=== PATIENT | female | born 1995 | race Caucasian/White ===

== ENCOUNTER 2016-09-20 01:00 | Emergency (ER) | payer OTHER ==
[~2016-09-20] VITALS: Ht 162.6 cm; Wt 63.6 kg
[~2016-09-20 01:00] MED LIST: BIRTH CONTROL; IMITREX; KEFLEX500 MG PO; MACROBID100 MG PO; MOTRIN800 MG PO; NORCO 5/3251 TABLET PO; PERCOCET 5/31 TABLET PO; PHENERGAN25 MG PR; PRENATAL TABLE1 EAC3 PO; PYRIDIUM200 MG PO; ZITHROMAX Z-PA250 MG PO; ZOFRAN ODT4 MG PO; ZOFRAN ODT8 MG PO; [UNRECOGNIZED DRUG - OTHER] PO; [UNRECOGNIZED DRUG - REMARK]
[2016-09-20 01:32] LABS: HEMATOCRIT 37.2 % (36.0-46.0); MCHC 33.9 G/DL (30.0-36.0); MCV 85.5 FL (83-99); MEAN PLAT.VOLUME 10.2 uM^3 (9.5-12.4); PLATELET COUNT 236 K/uL (156-360); RBC DIS.WIDTH-SD 37.7 % (39-53); RED BLOOD COUNT 4.35 M/uL (3.80-5.20); WHITE BLOOD COUNT 6.4 K/uL (4.1-10.2)
[2016-09-20 01:43] LABS: CHLORIDE 108 mEq/L (99-109); POTASSIUM 3.5 mEq/L (3.7-5.4); SODIUM 139 mEq/L (136-147)
[2016-09-20 01:46] LABS: GLUCOSE 129 mg/dL (70-99)
[2016-09-20 01:47] LABS: ANION GAP 9 MEQ/L (2-14); TOTAL BILIRUBIN 0.3 mg/dL (0.0-1.0)
[2016-09-20 01:49] LABS: ALKALINE PHOSPHATASE 59 IU/L (3-129); GFR ESTIMATE (CALCULATED) > 59 mL/min/
[2016-09-20 01:50] LABS: UREA NITROGEN (BUN) 9 mg/dL (9-23)
[2016-09-20 01:58] LABS: QUANTITATIVE HCG 7000.3 MIU/ML
[2016-09-20 05:33] VITALS: BP 135/79
== END 2016-09-20 05:56 | disposition home or self-care (01) ==
LOC: EME 01:00
DX: O03.4 Incomplete spontaneous abortion without complication (principal); Z91.040 Latex allergy status
CPT/HCPCS: 76801; 80053; 81003; 83030; 84702; 85027; 86850; 86900; 86901; 99281; 99284; J2790

== ENCOUNTER 2017-09-29 20:32 | Emergency (ER) | payer OTHER ==
[~2017-09-29] VITALS: Ht 162.6 cm; Wt 69.3 kg
[2017-09-29 21:00] LABS: HEMOGLOBIN 12.7 G/DL (11.9-15.5); MCH 28.4 PG (29.0-34.0); MCHC 34.3 G/DL (30.0-36.0); MCV 82.8 FL (83-99); PLATELET COUNT 207 K/uL (156-360); RBC DIS.WIDTH-CV 13.1 % (11.8-14.6); RED BLOOD COUNT 4.47 M/uL (3.80-5.20); WHITE BLOOD COUNT 5.7 K/uL (4.1-10.2)
[2017-09-29 21:08] LABS: ALBUMIN 4.6 g/dL (3.2-4.8)
[2017-09-29 21:09] LABS: CHLORIDE 106 mEq/L (99-109); POTASSIUM 3.4 mEq/L (3.7-5.4); SODIUM 140 mEq/L (136-147)
[2017-09-29 21:11] LABS: GLUCOSE 91 mg/dL (70-99)
[2017-09-29 21:13] LABS: TOTAL BILIRUBIN 0.5 mg/dL (0.0-1.0)
[2017-09-29 21:14] LABS: ALKALINE PHOSPHATASE 61 IU/L (3-129)
[2017-09-29 21:15] LABS: CREATININE 0.8 mg/dL (0.6-1.3); GFR ESTIMATE (CALCULATED) > 59 mL/min/
[2017-09-29 21:16] LABS: AST (GOT) 15 IU/L (2-34); UREA NITROGEN (BUN) 6 mg/dL (9-23)
[2017-09-29 21:17] LABS: ALT (GPT) 12 IU/L (3-49)
[2017-09-29 21:23] LABS: QUANTITATIVE HCG < 4.0 MIU/ML
[2017-09-29 23:14] LABS: APPEARANCE CLOUDY ((CLEAR)); BILIRUBIN NEGATIVE; BLOOD NEGATIVE; COLOR AMBER ((YELLOW)); GLUCOSE (STRIP) NEGATIVE; KETONES 5; LEUKOCYTES LARGE; NITRITE NEGATIVE; PROTEIN (STRIP) 100; SPECIFIC GRAVITY 1.025 (1.000-1.030); UROBILINOGEN 0.2 MG/DL (0.2-1.0)
[2017-09-29 23:33] LABS: BACTERIA 3+ /HPF; EPITHELIAL CELLS 3+ /HPF; MUCUS RARE /LPF; OTHER SPERM CELLS; RED BLOOD CELLS NONE SEEN /HPF (0-5); UCUL ADDED? YES; WHITE BLOOD CELLS 30-40 /HPF (0-5)
[2017-09-29] MEDS ORDERED: VIBRAMYCIN100 MG PO (23:56)
[2017-09-29] MEDS ORDERED: FLAGYL500 MG PO (23:56)
[2017-09-29] MEDS ORDERED: DIFLUCAN150 MG PO (23:57)
[2017-09-30 00:01] LABS: SOURCE SWAB
[2017-09-30 00:16] VITALS: BP 109/67
[2017-10-01] MEDS ORDERED: MACROBID100 MG PO (15:29)
[2017-10-01] MEDS ORDERED: PEPCID20 MG PO (15:29)
[2017-10-01] MEDS ORDERED: PREDNISONE50 MG PO (15:29)
== END 2017-09-30 00:18 | disposition home or self-care (01) ==
LOC: EME 20:32
PROVIDERS: Physician Assistant
DX: N73.9 Female pelvic inflammatory disease, unspecified (principal); N39.0 Urinary tract infection, site not specified; Z91.040 Latex allergy status
CPT/HCPCS: 80053; 81003; 84702; 85027; 87086; 87210; 87491; 87591; 99281; 99284; J0696

== ENCOUNTER 2017-10-01 12:24 | Emergency (ER) | payer OTHER ==
[~2017-10-01] VITALS: Ht 162.6 cm; Wt 69.6 kg
[~2017-10-01 12:24] MED LIST changes: +DIFLUCAN150 MG PO; +FLAGYL500 MG PO; +VIBRAMYCIN100 MG PO
[2017-10-01] MEDS ORDERED: PEPCID20 MG PO (15:29)
[2017-10-01] MEDS ORDERED: PREDNISONE50 MG PO (15:29)
[2017-10-01] MEDS ORDERED: MACROBID100 MG PO (15:29)
[2017-10-01 15:50] VITALS: BP 113/75
== END 2017-10-01 15:50 | disposition home or self-care (01) ==
LOC: EME 12:24
DX: T78.40XA Allergy, unspecified, initial encounter (principal); N39.0 Urinary tract infection, site not specified; Z91.040 Latex allergy status
CPT/HCPCS: 99281; 99283; J7512

== ENCOUNTER 2018-01-27 06:45 | Day surgery (SDC) | payer OTHER ==
[~2018-01-27] VITALS: Ht 162.6 cm; Wt 65.8 kg
[~2018-01-27 06:45] MED LIST changes: +PEPCID20 MG PO; +PREDNISONE50 MG PO
[2018-01-27 07:30] VITALS: BP 114/63
[2018-01-27] MEDS ORDERED: IBUPROFEN800 MG PO (09:25)
[2018-01-27] MEDS ORDERED: ENDOCET 5-3251 EACH PO (09:25)
[2018-01-27 10:43] VITALS: BP 119/59
[2018-01-27 11:17] VITALS: BP 116/72
== END 2018-01-27 11:44 | disposition home or self-care (01) ==
LOC: SDC 06:45
PROC: 0UBC7ZX Excision of Cervix, Via Natural or Artificial Opening, Diagnostic (ICD-10-PCS; principal; 2018-01-27)
DX: D06.9 Carcinoma in situ of cervix, unspecified (principal); Z88.8 Allergy status to other drugs, medicaments and biological substances; Z88.1 Allergy status to other antibiotic agents; Z91.040 Latex allergy status
CPT/HCPCS: 88305; 88307; J1100; J2250; J2405; J3010

== ENCOUNTER 2018-02-10 12:00 | Emergency (ER) | payer OTHER ==
[~2018-02-10] VITALS: Ht 162.6 cm; Wt 67.0 kg
[~2018-02-10 12:00] MED LIST changes: +ENDOCET 5-3251 EACH PO; +IBUPROFEN800 MG PO
[2018-02-10 12:58] LABS: HEMATOCRIT 34.8 % (36.0-46.0); HEMOGLOBIN 11.6 G/DL (11.9-15.5); MCH 28.5 PG (29.0-34.0); MCHC 33.3 G/DL (30.0-36.0); MCV 85.5 FL (83-99); PLATELET COUNT 233 K/uL (156-360); RBC DIS.WIDTH-CV 12.5 % (11.8-14.6); RBC DIS.WIDTH-SD 38.9 % (39-53); RED BLOOD COUNT 4.07 M/uL (3.80-5.20); WHITE BLOOD COUNT 5.3 K/uL (4.1-10.2)
[2018-02-10 13:11] LABS: ALBUMIN 4.2 g/dL (3.2-4.8); CHLORIDE 107 mEq/L (99-109); POTASSIUM 3.8 mEq/L (3.7-5.4); SODIUM 138 mEq/L (136-147)
[2018-02-10 13:13] LABS: GLUCOSE 98 mg/dL (70-99)
[2018-02-10 13:14] LABS: TOTAL PROTEIN 6.7 g/dL (6.4-8.3)
[2018-02-10 13:15] LABS: TOTAL BILIRUBIN 0.6 mg/dL (0.0-1.0)
[2018-02-10 13:17] LABS: ALKALINE PHOSPHATASE 69 IU/L (3-129); CREATININE 0.7 mg/dL (0.6-1.3); GFR ESTIMATE (CALCULATED) > 59 mL/min/
[2018-02-10 13:18] LABS: UREA NITROGEN (BUN) 7 mg/dL (9-23)
[2018-02-10 13:19] LABS: AST (GOT) 14 IU/L (2-34)
[2018-02-10 13:20] LABS: ALT (GPT) 11 IU/L (3-49)
[2018-02-10 13:27] LABS: QUANTITATIVE HCG < 4.0 MIU/ML
[2018-02-10 14:52] LABS: APPEARANCE CLEAR ((CLEAR)); BILIRUBIN NEGATIVE; BLOOD LARGE; GLUCOSE (STRIP) NEGATIVE; KETONES NEGATIVE; LEUKOCYTES NEGATIVE; NITRITE NEGATIVE; PROTEIN (STRIP) 100; SPECIFIC GRAVITY 1.005 (1.000-1.030); UROBILINOGEN 0.2 MG/DL (0.2-1.0)
[2018-02-10 14:53] LABS: COLOR RED ((YELLOW))
[2018-02-10 15:17] LABS: BACTERIA RARE /HPF; EPITHELIAL CELLS RARE /HPF; MUCUS TRACE /LPF; RED BLOOD CELLS TNTC /HPF (0-5); WHITE BLOOD CELLS RARE /HPF (0-5)
[2018-02-10] MEDS ORDERED: PERCOCET 5/31 TABLET PO (16:31)
[2018-02-10 17:19] VITALS: BP 117/80
== END 2018-02-10 17:48 | disposition home or self-care (01) ==
LOC: EME 12:00
PROVIDERS: Nurse Practitioner Family
DX: N99.820 Postprocedural hemorrhage of a genitourinary system organ or structure following a genitourinary system procedure (principal); Z91.040 Latex allergy status
CPT/HCPCS: 80053; 81003; 84702; 85027; 99281; 99284